=== PATIENT | female | born 1945 | race Caucasian/White ===

== ENCOUNTER 2017-11-30 14:46 | Inpatient (IN) | payer OTHER, MEDICAID, MEDICARE ==
[2017-11-30 15:51] LABS: ADD MAN DIFF? NO
[2017-11-30] MEDS: ASPIRIN 81 MG TAB PO (15:52)
[2017-11-30] MEDS: SOD CHLORIDE 0.9% 500 ML IV (15:53)
[2017-11-30 15:55] LABS: BASOPHILS % 0.3 % (0.0-2.0); EOSINOPHILS % 0.4 % (0.0-7.0); HEMATOCRIT 38.6 % (37.0-47.0); HEMOGLOBIN 12.2 g/dl (12.0-16.0); LYMPHOCYTES # 0.9 10^3/ul (0.8-2.9); MEAN CORPUSCULAR HEMOGLOBIN 30.7 pg (29.0-33.0); MEAN CORPUSCULAR HGB CONC 31.6 g/dl (32.0-37.0); MEAN PLATELET VOLUME 11.3 fl (7.4-10.4); MONOCYTE # 0.8 10^3/ul (0.3-0.9); MONOCYTES % 8.4 % (0.0-11.0); NEUTROPHIL # 7.6 10^3/ul (1.6-7.5); NEUTROPHILS % 80.5 % (39.0-77.0); PLATELET COUNT 138 10^3/UL (140-415); RED BLOOD COUNT 3.98 10^6/ul (4.20-5.40); RED CELL DISTRIBUTION WIDTH 13.2 % (11.5-14.5)
[2017-11-30 15:55] LABS: WHITE BLOOD COUNT 9.4 10^3/ul (4.8-10.8)
[2017-11-30 15:57] LABS: INR 0.99; PROTIME 13.2 Sec (11.9-14.9)
[2017-11-30 15:58] LABS: PARTIAL THROMBOPLASTIN TIME 26.7 Sec (25.0-35.0)
[2017-11-30 16:01] LABS: ALANINE AMINOTRANSFERASE 17 IU/L (13-69); ALBUMIN 4.4 g/dl (3.3-4.9); ALBUMIN/GLOBULIN RATIO 1.37; ALKALINE PHOSPHATASE 77 IU/L (42-121); ANION GAP 14 (8-16); ASPARTATE AMINO TRANSFERASE 34 IU/L (15-46); BILIRUBIN,INDIRECT 0.3 mg/dl (0-1.1); BILIRUBIN,TOTAL 0.3 mg/dl (0.2-1.3); BLOOD UREA NITROGEN 22 mg/dl (7-20); CALCIUM 9.7 mg/dl (8.4-10.2); CARBON DIOXIDE 27 mmol/L (21-31); CHLORIDE 105 mmol/L (97-110); CREATININE 1.17 mg/dl (0.44-1.00); GLUCOSE 160 mg/dl (70-220); LIPASE 49 U/L (23-300); POTASSIUM 4.1 mmol/L (3.5-5.1); SODIUM 142 mmol/L (135-144); TOTAL PROTEIN 7.6 g/dl (6.1-8.1)
[2017-11-30 16:18] LABS: TROPONIN-I 0.227 ng/ml (0.000-0.120)
[2017-11-30] MEDS: IOHEXOL 100 ML (16:44)
[2017-11-30] MEDS: SOD CHLORIDE 0.9% 100 ML (16:44)
[2017-11-30] MEDS: HEPARIN 1000 UNITS/ML 10 ML INJ IV (17:05)
[2017-11-30] MEDS: HEPARIN 25000 UNITS/250 ML 250 ML IV (17:08)
[2017-11-30] MEDS: ALTEPLASE 100 MG INJ IV* (17:31)
[2017-11-30] MEDS ORDERED: NACL 0.9% 3 ML SYG IV (18:30)
[2017-11-30] MEDS ORDERED: MAGNESIUM HYDROXIDE 30ML CUP PO (18:30)
[2017-11-30] MEDS ORDERED: NA PHOSPHATE/BIPHOS 133 ML ENEMA PR (18:30)
[2017-11-30] MEDS ORDERED: NITROGLYCERIN (SL) 0.4 MG TAB SL (18:30)
[2017-11-30] MEDS ORDERED: ALBUTEROL/IPRATROPIUM (NEB) 3 ML AMP HHN (18:30)
[2017-11-30] MEDS ORDERED: DOCUSATE SODIUM 100 MG CAP PO (18:30)
[2017-11-30] MEDS ORDERED: hydrALAzine 20 MG INJ IV (18:30)
[2017-11-30] MEDS ORDERED: LORAZEPAM 2 MG INJ IV (18:30)
[2017-11-30 19:15] LABS: HEMOGLOBIN A1C 6.2 % (0-5.9)
[2017-11-30 19:38] LABS: FREE T4 (FREE THYROXINE) 1.05 ng/dl (0.78-2.44)
[2017-11-30] MEDS: FAMOTIDINE 20 MG INJ IV (19:38)
[2017-11-30] MEDS: SOD CHLORIDE 0.45% 1,000 ML IV (19:39)
[2017-11-30] MEDS: morphine 2 MG INJ IV (19:39)
[2017-11-30] MEDS: ONDANSETRON 4 MG INJ IV (20:19)
[2017-11-30] MEDS: ATORVASTATIN 40 MG TAB PO ×2 (20:19→20:57)
[2017-11-30] MEDS: ACETAMINOPHEN 325 MG TAB PO (20:19)
[2017-11-30 20:48] LABS: AADO2 Arterial 304.6 mmHg (7.0-24.0); Allen Test ACCEPTAB; Arterial Base Excess -2.4 mmol/L (-3.0-3); Arterial Blood Gas Oxygen Sat 94.8 mmHG (95.0-98.0); Arterial COHb 0.1 % (0.0-3.0); Arterial Fraction of Oxyhgb 94.6 % (93.0-99.0); Arterial HCO3 23.2 mmol/L (22.0-26.0); Arterial MetHb 0.1 % (0.0-1.5); Arterial Total Hemglobin 11.5 g/dl (12.0-18.0); Arterial pCO2 42.7 mmhg (35-45); MODE MASK - SIMPLE; Site Right Radial
[2017-11-30] MEDS: HYDROmorphONE 0.5 MG/0.5 ML SYG IV (21:36)
[2017-11-30 23:00] LABS: TROPONIN-I 0.192 ng/ml (0.000-0.120)
[2017-12-01 01:58] LABS: TROPONIN-I 0.175 ng/ml (0.000-0.120)
[2017-12-01] MEDS: morphine 2 MG INJ IV ×3 (03:22→22:13)
[2017-12-01 04:00] LABS: PARTIAL THROMBOPLASTIN TIME 138.3 Sec (25.0-35.0)
[2017-12-01 07:00] LABS: ADD MAN DIFF? NO
[2017-12-01] MEDS: ONDANSETRON 4 MG INJ IV ×2 (07:06→09:29)
[2017-12-01 07:07] LABS: BASOPHILS % 0.2 % (0.0-2.0); HEMATOCRIT 31.2 % (37.0-47.0); HEMOGLOBIN 9.8 g/dl (12.0-16.0); LYMPHOCYTES # 0.7 10^3/ul (0.8-2.9); MEAN CORPUSCULAR HEMOGLOBIN 30.6 pg (29.0-33.0); MEAN CORPUSCULAR HGB CONC 31.4 g/dl (32.0-37.0); MEAN CORPUSCULAR VOLUME 97.5 fl (82.0-101.0); MEAN PLATELET VOLUME 11.5 fl (7.4-10.4); MONOCYTE # 0.7 10^3/ul (0.3-0.9); MONOCYTES % 6.6 % (0.0-11.0); NEUTROPHIL # 8.8 10^3/ul (1.6-7.5); NEUTROPHILS % 85.5 % (39.0-77.0); PLATELET COUNT 119 10^3/UL (140-415); RED CELL DISTRIBUTION WIDTH 13.2 % (11.5-14.5)
[2017-12-01 07:07] LABS: WHITE BLOOD COUNT 10.2 10^3/ul (4.8-10.8)
[2017-12-01 07:24] LABS: ANION GAP 13 (8-16); BLOOD UREA NITROGEN 22 mg/dl (7-20); CALCIUM 8.5 mg/dl (8.4-10.2); CARBON DIOXIDE 25 mmol/L (21-31); CHLORIDE 106 mmol/L (97-110); CHOL/HDL RATIO 3.4 RATIO; CHOLESTEROL 156 mg/dl (100-200); CREATININE 0.96 mg/dl (0.44-1.00); GLUCOSE 154 mg/dl (70-220); HDL CHOLESTEROL 45 mg/dl (33-92); LDL CHOLESTEROL,CALCULATED 86 mg/dl; MAGNESIUM 1.8 mg/dl (1.7-2.5); PHOSPHORUS 4.4 mg/dl (2.5-4.9); POTASSIUM 4.6 mmol/L (3.5-5.1); SODIUM 139 mmol/L (135-144); TRIGLYCERIDES 123 mg/dl (0-149)
[2017-12-01 07:31] LABS: HEMOGLOBIN A1C 6.2 % (0-5.9)
[2017-12-01 07:36] LABS: TROPONIN-I 0.082 ng/ml (0.000-0.120)
[2017-12-01] MEDS: LEVOTHYROXINE 25 MCG TAB PO (08:17)
[2017-12-01] MEDS: SOD CHLORIDE 0.45% 1,000 ML IV ×2 (10:04→22:15)
[2017-12-01] MEDS: FAMOTIDINE 20 MG INJ IV (10:04)
[2017-12-01] MEDS: TRIMETHOBENZAMIDE 100 MG/ML VIAL IM ×2 (10:05→20:54)
[2017-12-01] MEDS: HEPARIN 25000 UNITS/250 ML 250 ML IV (10:11)
[2017-12-01 12:11] LABS: PARTIAL THROMBOPLASTIN TIME 132.4 Sec (25.0-35.0)
[2017-12-01] MEDS ORDERED: ONDANSETRON 4 MG INJ IV (12:30)
[2017-12-01] MEDS: ONDANSETRON INJ 8 MG in SOD CHLORIDE 0.9% 50 ML IV (19:35)
[2017-12-01] MEDS: ATORVASTATIN 40 MG TAB PO (21:00)
[2017-12-01 21:08] LABS: PARTIAL THROMBOPLASTIN TIME 128.7 Sec (25.0-35.0)
[2017-12-01] MEDS: BISACODYL 10 MG SUPP PR (21:51)
[2017-12-02] MEDS: morphine 2 MG INJ IV (04:05)
[2017-12-02] MEDS: ONDANSETRON INJ 8 MG in SOD CHLORIDE 0.9% 50 ML IV (04:09)
[2017-12-02 05:31] LABS: ADD MAN DIFF? NO
[2017-12-02 05:47] LABS: BASOPHILS % 0.1 % (0.0-2.0); HEMATOCRIT 23.8 % (37.0-47.0); HEMOGLOBIN 7.6 g/dl (12.0-16.0); LYMPHOCYTES # 0.9 10^3/ul (0.8-2.9); LYMPHOCYTES % 10.1 % (15.0-51.0); MEAN CORPUSCULAR HEMOGLOBIN 30.8 pg (29.0-33.0); MEAN CORPUSCULAR HGB CONC 31.9 g/dl (32.0-37.0); MEAN CORPUSCULAR VOLUME 96.4 fl (82.0-101.0); MEAN PLATELET VOLUME 11.5 fl (7.4-10.4); MONOCYTE # 0.9 10^3/ul (0.3-0.9); MONOCYTES % 9.6 % (0.0-11.0); NEUTROPHIL # 7.1 10^3/ul (1.6-7.5); NEUTROPHILS % 79.6 % (39.0-77.0); PLATELET COUNT 139 10^3/UL (140-415); RED BLOOD COUNT 2.47 10^6/ul (4.20-5.40); RED CELL DISTRIBUTION WIDTH 13.1 % (11.5-14.5)
[2017-12-02 06:02] LABS: PARTIAL THROMBOPLASTIN TIME 69.6 Sec (25.0-35.0)
[2017-12-02 06:11] LABS: ANION GAP 9 (8-16); BLOOD UREA NITROGEN 20 mg/dl (7-20); CARBON DIOXIDE 27 mmol/L (21-31); CHLORIDE 99 mmol/L (97-110); CREATININE 0.87 mg/dl (0.44-1.00); GLUCOSE 137 mg/dl (70-220); POTASSIUM 4.3 mmol/L (3.5-5.1); SODIUM 131 mmol/L (135-144)
[2017-12-02] MEDS: LEVOTHYROXINE 25 MCG TAB PO (06:26)
[2017-12-02] MEDS: FAMOTIDINE 20 MG INJ IV (09:06)
[2017-12-02] MEDS: SOD CHLORIDE 0.45% 1,000 ML IV ×2 (10:23→17:56)
[2017-12-02 11:26] LABS: HEMATOCRIT 24.4 % (37.0-47.0); HEMOGLOBIN 7.8 g/dl (12.0-16.0)
[2017-12-02] MEDS ORDERED: HEPARIN 1000 UNITS/NS (A-LINE) 1,000 ML (13:13)
[2017-12-02] MEDS ORDERED: LIDOCAINE 1% (MDV) 10 ML INJ (13:13)
[2017-12-02] MEDS ORDERED: MIDAZOLAM 1 MG/ML 2 ML INJ (13:14)
[2017-12-02] MEDS ORDERED: FENTAnyl 50 MCG/ML VIAL (13:14)
[2017-12-02] MEDS ORDERED: IODIXANOL LOCM 100 ML BTL (13:48)
[2017-12-02] MEDS: HYDROmorphONE 0.5 MG/0.5 ML SYG IV (14:45)
[2017-12-02 14:46] LABS: PARTIAL THROMBOPLASTIN TIME 30.6 Sec (25.0-35.0); PROTIME 13.3 Sec (11.9-14.9)
[2017-12-02] MEDS: HEPARIN 25000 UNITS/250 ML 250 ML IV (15:20)
[2017-12-02] MEDS ORDERED: HEPARIN 1000 UNITS/ML 10 ML INJ IV ×2 (16:00)
[2017-12-02] MEDS: HEPARIN 1000 UNITS/ML 10 ML INJ IV (16:17)
[2017-12-02] MEDS: ATORVASTATIN 40 MG TAB PO (21:56)
[2017-12-02] MEDS: ACETAMINOPHEN 325 MG TAB PO (21:56)
[2017-12-02 22:33] LABS: ANION GAP 11 (8-16); BLOOD UREA NITROGEN 22 mg/dl (7-20); CALCIUM 7.8 mg/dl (8.4-10.2); CARBON DIOXIDE 24 mmol/L (21-31); CHLORIDE 97 mmol/L (97-110); GLUCOSE 166 mg/dl (70-220); MAGNESIUM 1.6 mg/dl (1.7-2.5); PHOSPHORUS 3.3 mg/dl (2.5-4.9); POTASSIUM 4.3 mmol/L (3.5-5.1); SODIUM 128 mmol/L (135-144)
[2017-12-02] MEDS ORDERED: MAGNESIUM SULFATE 2 GM/50 ML 50 ML (23:10)
[2017-12-02] MEDS: SOD CHLORIDE 0.9% 250 ML IV (23:21)
[2017-12-02] MEDS: MAGNESIUM SULFATE 2 GM/50 ML 50 ML IVPB (23:22)
[2017-12-03] MEDS: HALOPERIDOL 5 MG INJ IM (02:18)
[2017-12-03 05:57] LABS: ADD MAN DIFF? NO
[2017-12-03 06:03] LABS: WHITE BLOOD COUNT 8.9 10^3/ul (4.8-10.8)
[2017-12-03 06:03] LABS: BASOPHILS % 0.1 % (0.0-2.0); HEMATOCRIT 21.5 % (37.0-47.0); LYMPHOCYTES # 1.2 10^3/ul (0.8-2.9); LYMPHOCYTES % 13.4 % (15.0-51.0); MEAN CORPUSCULAR HEMOGLOBIN 31.1 pg (29.0-33.0); MEAN CORPUSCULAR HGB CONC 32.6 g/dl (32.0-37.0); MEAN CORPUSCULAR VOLUME 95.6 fl (82.0-101.0); MEAN PLATELET VOLUME 11.3 fl (7.4-10.4); MONOCYTE # 1.2 10^3/ul (0.3-0.9); MONOCYTES % 13.8 % (0.0-11.0); NEUTROPHIL # 6.4 10^3/ul (1.6-7.5); NEUTROPHILS % 71.7 % (39.0-77.0); PLATELET COUNT 154 10^3/UL (140-415); RED BLOOD COUNT 2.25 10^6/ul (4.20-5.40); RED CELL DISTRIBUTION WIDTH 13.3 % (11.5-14.5)
[2017-12-03 06:23] LABS: ANION GAP 9 (8-16); BLOOD UREA NITROGEN 23 mg/dl (7-20); CARBON DIOXIDE 27 mmol/L (21-31); CHLORIDE 100 mmol/L (97-110); CREATININE 1.13 mg/dl (0.44-1.00); GLUCOSE 129 mg/dl (70-220); POTASSIUM 4.4 mmol/L (3.5-5.1); SODIUM 132 mmol/L (135-144)
[2017-12-03 06:25] LABS: PARTIAL THROMBOPLASTIN TIME 58.5 Sec (25.0-35.0)
[2017-12-03] MEDS: LEVOTHYROXINE 25 MCG TAB PO (06:31)
[2017-12-03] MEDS: TRIMETHOBENZAMIDE 100 MG/ML VIAL IM (07:52)
[2017-12-03] MEDS: FAMOTIDINE 20 MG INJ IV (09:53)
[2017-12-03] MEDS: SOD CHLORIDE 0.9% 1,000 ML IV ×2 (11:38→17:56)
[2017-12-03 12:41] LABS: ADD UMIC YES; UR ASCORBIC ACID NEGATIVE (NEGATIVE); UR BILIRUBIN (Dip) NEGATIVE (NEGATIVE); UR BLOOD (Dip) NEGATIVE (NEGATIVE); UR CLARITY CLEAR (CLEAR); UR COLOR AMBER (YELLOW); UR GLUCOSE (Dip) NEGATIVE (NEGATIVE); UR KETONES (Dip) NEGATIVE (NEGATIVE); UR LEUKOCYTE ESTERASE (Dip) NEGATIVE Leu/ul (NEGATIVE); UR NITRITE (Dip) NEGATIVE (NEGATIVE); UR RBC 0 /HPF (0-5); UR TOTAL PROTEIN (Dip) 1+ mg/dl (NEGATIVE); UR UROBILINOGEN (Dip) 2+ mg/dL (NEGATIVE); UR WBC 1 /HPF (0-5)
[2017-12-03 13:02] LABS: HEMATOCRIT 20.9 % (37.0-47.0)
[2017-12-03 13:05] LABS: HEMOGLOBIN 6.7 g/dl (12.0-16.0)
[2017-12-03 13:26] LABS: PARTIAL THROMBOPLASTIN TIME 59.5 Sec (25.0-35.0)
[2017-12-03] MEDS ORDERED: NAPHAZOLINE/PHENIRAMINE 15 ML OPH BOTH EYES ×2 (16:30→17:30)
[2017-12-03 17:02] LABS: IMMEDIATE SPIN CROSSMATCH 1 2
[2017-12-03] MEDS: HEPARIN 25000 UNITS/250 ML 250 ML IV ×2 (17:16→21:04)
[2017-12-03] MEDS: SOD CHLORIDE 0.9% 250 ML IV* (17:17)
[2017-12-03 18:13] LABS: OCCULT BLOOD STOOL NEGATIVE (NEGATIVE)
[2017-12-03 20:15] LABS: PARTIAL THROMBOPLASTIN TIME 123.8 Sec (25.0-35.0)
[2017-12-03] MEDS: ATORVASTATIN 40 MG TAB PO (20:32)
[2017-12-04 03:26] LABS: ADD MAN DIFF? NO
[2017-12-04 03:28] LABS: WHITE BLOOD COUNT 7.7 10^3/ul (4.8-10.8)
[2017-12-04 03:28] LABS: BASOPHILS % 0.1 % (0.0-2.0); EOSINOPHILS % 0.3 % (0.0-7.0); HEMATOCRIT 25.8 % (37.0-47.0); HEMOGLOBIN 8.5 g/dl (12.0-16.0); LYMPHOCYTES # 1.3 10^3/ul (0.8-2.9); LYMPHOCYTES % 16.3 % (15.0-51.0); MEAN CORPUSCULAR HEMOGLOBIN 29.9 pg (29.0-33.0); MEAN CORPUSCULAR HGB CONC 32.9 g/dl (32.0-37.0); MEAN CORPUSCULAR VOLUME 90.8 fl (82.0-101.0); MEAN PLATELET VOLUME 10.3 fl (7.4-10.4); MONOCYTE # 1.2 10^3/ul (0.3-0.9); MONOCYTES % 14.9 % (0.0-11.0); NEUTROPHIL # 5.1 10^3/ul (1.6-7.5); NEUTROPHILS % 66.5 % (39.0-77.0); PLATELET COUNT 159 10^3/UL (140-415); RED BLOOD COUNT 2.84 10^6/ul (4.20-5.40); RED CELL DISTRIBUTION WIDTH 15.4 % (11.5-14.5)
[2017-12-04 03:47] LABS: ANION GAP 9 (8-16); BLOOD UREA NITROGEN 20 mg/dl (7-20); CARBON DIOXIDE 26 mmol/L (21-31); CHLORIDE 100 mmol/L (97-110); GLUCOSE 116 mg/dl (70-220); POTASSIUM 4.5 mmol/L (3.5-5.1); SODIUM 130 mmol/L (135-144)
[2017-12-04 03:48] LABS: PARTIAL THROMBOPLASTIN TIME 59.5 Sec (25.0-35.0)
[2017-12-04] MEDS: HEPARIN 25000 UNITS/250 ML 250 ML IV ×2 (04:11→12:01)
[2017-12-04 04:21] LABS: PHOSPHORUS 2.7 mg/dl (2.5-4.9)
[2017-12-04 04:21] LABS: MAGNESIUM 2.4 mg/dl (1.7-2.5)
[2017-12-04] MEDS: LEVOTHYROXINE 25 MCG TAB PO (07:36)
[2017-12-04] MEDS: SOD CHLORIDE 0.9% 1,000 ML IV (08:12)
[2017-12-04 11:09] LABS: PARTIAL THROMBOPLASTIN TIME 81.8 Sec (25.0-35.0)
[2017-12-04] MEDS: FAMOTIDINE 20 MG INJ IV (11:56)
[2017-12-04 18:20] LABS: PARTIAL THROMBOPLASTIN TIME 85.7 Sec (25.0-35.0)
[2017-12-04] MEDS: HYDROCODONE/APAP (5/325) TAB PO (19:57)
[2017-12-04] MEDS: ATORVASTATIN 40 MG TAB PO (19:58)
[2017-12-05] MEDS: HEPARIN 25000 UNITS/250 ML 250 ML IV (04:05)
[2017-12-05 05:45] LABS: WHITE BLOOD COUNT 6.7 10^3/ul (4.8-10.8)
[2017-12-05 05:45] LABS: ADD MAN DIFF? NO; BASOPHILS % 0.2 % (0.0-2.0); EOSINOPHILS # 0.1 10^3/ul (0.0-0.5); EOSINOPHILS % 1.1 % (0.0-7.0); HEMATOCRIT 26.1 % (37.0-47.0); HEMOGLOBIN 8.4 g/dl (12.0-16.0); LYMPHOCYTES # 0.8 10^3/ul (0.8-2.9); LYMPHOCYTES % 11.7 % (15.0-51.0); MEAN CORPUSCULAR HGB CONC 32.2 g/dl (32.0-37.0); MEAN CORPUSCULAR VOLUME 93.2 fl (82.0-101.0); MEAN PLATELET VOLUME 9.7 fl (7.4-10.4); MONOCYTE # 0.9 10^3/ul (0.3-0.9); MONOCYTES % 13.8 % (0.0-11.0); NEUTROPHIL # 4.8 10^3/ul (1.6-7.5); NEUTROPHILS % 72.1 % (39.0-77.0); NUCLEATED RED BLOOD CELLS% 0.3 /100WBC (0.0-0.0); PLATELET COUNT 189 10^3/UL (140-415); RED CELL DISTRIBUTION WIDTH 15.1 % (11.5-14.5)
[2017-12-05 06:22] LABS: ANION GAP 7 (8-16); BLOOD UREA NITROGEN 15 mg/dl (7-20); CALCIUM 8.5 mg/dl (8.4-10.2); CARBON DIOXIDE 29 mmol/L (21-31); CHLORIDE 100 mmol/L (97-110); CREATININE 0.93 mg/dl (0.44-1.00); GLUCOSE 108 mg/dl (70-220); POTASSIUM 4.7 mmol/L (3.5-5.1); SODIUM 131 mmol/L (135-144)
[2017-12-05] MEDS: LEVOTHYROXINE 25 MCG TAB PO (06:44)
[2017-12-05 06:49] LABS: PARTIAL THROMBOPLASTIN TIME 93.8 Sec (25.0-35.0)
[2017-12-05] MEDS: FAMOTIDINE 20 MG INJ IV (10:22)
[2017-12-05] MEDS: HYDROCODONE/APAP (5/325) TAB PO (10:57)
[2017-12-05] MEDS: ATORVASTATIN 40 MG TAB PO (21:11)
[2017-12-06] MEDS: HYDROCODONE/APAP (5/325) TAB PO ×2 (00:15→14:59)
[2017-12-06] MEDS: LEVOTHYROXINE 25 MCG TAB PO (06:02)
[2017-12-06 07:30] LABS: ADD MAN DIFF? NO
[2017-12-06] MEDS: HEPARIN 25000 UNITS/250 ML 250 ML IV (07:31)
[2017-12-06 07:49] LABS: WHITE BLOOD COUNT 7.8 10^3/ul (4.8-10.8)
[2017-12-06 07:49] LABS: EOSINOPHILS # 0.1 10^3/ul (0.0-0.5); EOSINOPHILS % 1.5 % (0.0-7.0); HEMATOCRIT 27.5 % (37.0-47.0); HEMOGLOBIN 8.4 g/dl (12.0-16.0); LYMPHOCYTES % 12.6 % (15.0-51.0); MEAN CORPUSCULAR HEMOGLOBIN 28.2 pg (29.0-33.0); MEAN CORPUSCULAR HGB CONC 30.5 g/dl (32.0-37.0); MEAN CORPUSCULAR VOLUME 92.3 fl (82.0-101.0); MEAN PLATELET VOLUME 10.2 fl (7.4-10.4); MONOCYTES % 12.2 % (0.0-11.0); NEUTROPHIL # 5.6 10^3/ul (1.6-7.5); NEUTROPHILS % 72.2 % (39.0-77.0); NUCLEATED RED BLOOD CELLS% 0.4 /100WBC (0.0-0.0); PLATELET COUNT 216 10^3/UL (140-415); RED BLOOD COUNT 2.98 10^6/ul (4.20-5.40); RED CELL DISTRIBUTION WIDTH 14.7 % (11.5-14.5)
[2017-12-06 07:51] LABS: POSITIVE DIFF @See below
[2017-12-06 08:08] LABS: PARTIAL THROMBOPLASTIN TIME 30.2 Sec (25.0-35.0)
[2017-12-06 08:30] LABS: ANION GAP 11 (8-16); BLOOD UREA NITROGEN 13 mg/dl (7-20); CALCIUM 8.7 mg/dl (8.4-10.2); CARBON DIOXIDE 27 mmol/L (21-31); CHLORIDE 95 mmol/L (97-110); CREATININE 0.86 mg/dl (0.44-1.00); GLUCOSE 101 mg/dl (70-220); POTASSIUM 4.6 mmol/L (3.5-5.1); SODIUM 128 mmol/L (135-144)
[2017-12-06] MEDS: FAMOTIDINE 20 MG INJ IV (10:39)
[2017-12-06] MEDS: APIXABAN 5 MG TABLET PO ×2 (11:09→21:29)
[2017-12-06] MEDS: SOD CHLORIDE 0.9% 100 ML (21:04)
[2017-12-06] MEDS: IODIXANOL LOCM 100 ML BTL (21:05)
[2017-12-06] MEDS: ATORVASTATIN 40 MG TAB PO (21:29)
[2017-12-07] MEDS: LEVOTHYROXINE 25 MCG TAB PO (06:05)
[2017-12-07 08:25] LABS: ADD MAN DIFF? NO
[2017-12-07 08:34] LABS: BASOPHILS % 0.1 % (0.0-2.0); EOSINOPHILS # 0.2 10^3/ul (0.0-0.5); EOSINOPHILS % 1.8 % (0.0-7.0); HEMATOCRIT 26.1 % (37.0-47.0); HEMOGLOBIN 8.2 g/dl (12.0-16.0); LYMPHOCYTES % 12.4 % (15.0-51.0); MEAN CORPUSCULAR HEMOGLOBIN 29.7 pg (29.0-33.0); MEAN CORPUSCULAR HGB CONC 31.4 g/dl (32.0-37.0); MEAN CORPUSCULAR VOLUME 94.6 fl (82.0-101.0); MEAN PLATELET VOLUME 9.6 fl (7.4-10.4); NEUTROPHIL # 5.8 10^3/ul (1.6-7.5); NEUTROPHILS % 71.1 % (39.0-77.0); NUCLEATED RED BLOOD CELLS% 0.2 /100WBC (0.0-0.0); PLATELET COUNT 244 10^3/UL (140-415); RED BLOOD COUNT 2.76 10^6/ul (4.20-5.40); RED CELL DISTRIBUTION WIDTH 14.5 % (11.5-14.5)
[2017-12-07 08:34] LABS: WHITE BLOOD COUNT 8.2 10^3/ul (4.8-10.8)
[2017-12-07 08:56] LABS: ANION GAP 8 (8-16); BLOOD UREA NITROGEN 11 mg/dl (7-20); CALCIUM 8.7 mg/dl (8.4-10.2); CARBON DIOXIDE 32 mmol/L (21-31); CHLORIDE 96 mmol/L (97-110); CREATININE 0.89 mg/dl (0.44-1.00); GLUCOSE 101 mg/dl (70-220); POTASSIUM 4.6 mmol/L (3.5-5.1); SODIUM 131 mmol/L (135-144)
[2017-12-07] MEDS: FAMOTIDINE 20 MG INJ IV (09:51)
[2017-12-07] MEDS: APIXABAN 5 MG TABLET PO (09:51)
[2017-12-07] MEDS: ATORVASTATIN 40 MG TAB PO (20:06)
[2017-12-07] MEDS: ENOXAPARIN 100 MG/ML SYG SC (20:10)
[2017-12-08] MEDS: HYDROCODONE/APAP (5/325) TAB PO (01:01)
[2017-12-08] MEDS: LEVOTHYROXINE 25 MCG TAB PO (04:48)
[2017-12-08 06:08] LABS: ADD MAN DIFF? NO
[2017-12-08 06:17] LABS: WHITE BLOOD COUNT 7.4 10^3/ul (4.8-10.8)
[2017-12-08 06:17] LABS: BASOPHILS % 0.3 % (0.0-2.0); EOSINOPHILS # 0.2 10^3/ul (0.0-0.5); EOSINOPHILS % 2.4 % (0.0-7.0); HEMATOCRIT 26.5 % (37.0-47.0); HEMOGLOBIN 8.1 g/dl (12.0-16.0); LYMPHOCYTES # 1.2 10^3/ul (0.8-2.9); LYMPHOCYTES % 15.6 % (15.0-51.0); MEAN CORPUSCULAR HEMOGLOBIN 28.8 pg (29.0-33.0); MEAN CORPUSCULAR HGB CONC 30.6 g/dl (32.0-37.0); MEAN CORPUSCULAR VOLUME 94.3 fl (82.0-101.0); MEAN PLATELET VOLUME 9.6 fl (7.4-10.4); MONOCYTE # 0.9 10^3/ul (0.3-0.9); MONOCYTES % 11.9 % (0.0-11.0); NEUTROPHIL # 4.9 10^3/ul (1.6-7.5); NEUTROPHILS % 65.7 % (39.0-77.0); NUCLEATED RED BLOOD CELLS% 0.3 /100WBC (0.0-0.0); PLATELET COUNT 273 10^3/UL (140-415); RED BLOOD COUNT 2.81 10^6/ul (4.20-5.40); RED CELL DISTRIBUTION WIDTH 14.5 % (11.5-14.5)
[2017-12-08 06:49] LABS: ANION GAP 7 (8-16); BLOOD UREA NITROGEN 10 mg/dl (7-20); CALCIUM 8.5 mg/dl (8.4-10.2); CARBON DIOXIDE 34 mmol/L (21-31); CHLORIDE 95 mmol/L (97-110); CREATININE 0.87 mg/dl (0.44-1.00); GLUCOSE 116 mg/dl (70-220); POTASSIUM 4.1 mmol/L (3.5-5.1); SODIUM 132 mmol/L (135-144)
[2017-12-08] MEDS: ENOXAPARIN 100 MG/ML SYG SC (09:12)
[2017-12-13] MEDS ORDERED: APIXABAN 5 MG TABLET PO (09:00)
== END 2017-12-08 14:34 | DRG 167 ==
LOC: TEL 12-04 14:36 → E/R 14:46 → ICU 18:04
PROC: 06H03DZ Insertion of Intraluminal Device into Inferior Vena Cava, Percutaneous Approach (ICD-10-PCS; principal; 2017-12-02 12:45)
PROC: 3E04317 Introduction of Other Thrombolytic into Central Vein, Percutaneous Approach (ICD-10-PCS; 2017-12-02 12:45)
DX: I26.92 Saddle embolus of pulmonary artery without acute cor pulmonale (principal); I82.432 Acute embolism and thrombosis of left popliteal vein; J98.11 Atelectasis; R18.8 Other ascites; N13.30 Unspecified hydronephrosis; R06.03 Acute respiratory distress; E78.00 Pure hypercholesterolemia, unspecified; E03.9 Hypothyroidism, unspecified; R09.02 Hypoxemia; D64.9 Anemia, unspecified; D69.6 Thrombocytopenia, unspecified; Z98.890 Other specified postprocedural states
CPT/HCPCS: 36415; 36430; 36600; 71045; 71275; 74018; 74177; 76775; 76937; 80048; 80053; 80061; 81001; 82270; 82803; 83036; 83690; 83735; 84100; 84439; 84443; 84484; 85014; 85018; 85025; 85610; 85730; 86850; 86900; 86901; 86920; 87081; 87086; 92610; 93005; 93306; 93970; 96374; 97110; 97116; 97163; 97165; 97530; 99291-25